=== PATIENT | male | born 1955 | race Caucasian/White ===

== ENCOUNTER 2018-04-26 15:00 | Outpatient (RCR) | payer BC, SELFPAY ==
--- NOTE | 2018-04-22 11:17 | HMH.PTOPEV ---
PT Outpatient Evaluation Rehab PT Outpatient Evaluation Start: 04/20/18 15:23 Freq: Status: Active Protocol: Document 04/20/18 15:00 WILLOW (Rec: 04/22/18 11:17 WILLOW [id number]) Electronically Signed By Huy Taveras, PT 04/20/18 15:00 Outpatient Therapy Subjective History Subjective History Pt reports insidious onset LBP beginning ~10-15 days ago. Pt reports s/s could have been caused by a fall, but is unsure is it's related. Pt presents today w/ R sided LBP and R LE s/s from R glut to R lateral calf. Chief Complaint Pain Symptom Type Ache Throb Sharp Dull Tingling Symptoms Relieved By Rest/Positioning OTC Meds Prescription Meds Symptoms Aggravated By Bending/Stooping Physical Activity Twisting Walking Prior Functional Limitations None Current Functional Limitations Lifting Recreation Activity Walking Bending/Stooping Symptom Description Constant but Variable Level of pain today (0-10) 3 Pain scale - at its best (0-10) 2 Pain scale - at its worst (0-10) 9 Lumbopelvic Eval Posture Thoracic Spine Posture Standing Position Neutral Lumbar Spine Posture Standing Position Neutral Assistive device Assistive Devices None / NA Palapation tenderness right paraspinal tenderness Yes: 3/4 buttock tenderness Yes: 3/4 Accessory Movement L-spine Vertebrae Accessory Movements Right P/A [place] that Elicit Symptoms L4 right L5 right Range of Motion Lumbar Spine Active Flexion Range of 0-60 Motion (degrees) Lumbar Spine Active Extension Range of 0-10 Motion (degrees) Left Lumbar Spine Lateral Flexion Active 0-15 Range of Motion (degrees) Right Lumbar Spine Lateral Flexion 0-10 Active Range of Motion (degrees) Lumbar Spine ROM Limitations Pain Manual Muscle Test Bilateral Knee Extension Strength Grade 5 Normal Knee Flexion Strength Grade 5 Normal Hip Flexion Strength Grade 4 Good Extensor Hallucis Longus Strength Grade 5 Normal Ankle Dorsiflexion Strength Grade 5 Normal Gastronemius/Soleus Strength Grade 5 Normal DTR R
== END 2018-04-26 15:01 | disposition home or self-care (01) ==
LOC: PT 15:00
PROVIDERS: Family Provider Internal Medicine; PCP Internal Medicine; Visit Provider Internal Medicine
DX: M54.31 Sciatica, right side (principal)
CPT/HCPCS: 97010; 97012; 97014; 97035; 97110; 97163; G0283

== ENCOUNTER 2020-06-15 17:56 | Emergency (ER) | payer BC, SELFPAY ==
[2020-06-15 18:02] VITALS: BP 155/87; PULSE 83; RESP 12; TEMP 36.6; O2SAT 97; BMI 28.7
--- NOTE | 2020-06-15 18:02 | XR_ITS ---
PROCEDURE: XR KNEE RT 3V CLINICAL INDICATION: KNOT ON KNEE COMPARISON: No exams were available for comparison FINDINGS: No fracture or dislocation. No lytic or blastic change. There is normal mineralization. The joint spaces are well-preserved. No significant degenerative/arthritic changes. No erosive changes evident. Other findings:There is soft tissue swelling along the proximal and anterior aspect of the tibia without soft tissue gas or radiopaque foreign body. There is generalized vascular calcification. IMPRESSION: Soft tissue swelling proximal tibia otherwise negative Dictated by: Pérez Carlson MD 06/15/2020 22:26 Pérez Carlson MD in [place] 06/15/2020 22:26
--- NOTE | 2020-06-15 18:40 | HMH.EDUTC ---
[facility] [place] Impression: H[place]oma Disposition: Home, Self-Care Condition on Discharge: Good Instructions: Contusion, DI for Contusion, DI for Hematoma (Bruise), How To Perform RICE (Rest, Ice, Compress, Elevate) Additional Instructions: *weight bearing as tolerated *RICE, Rest the extremity, Ice 15-20 minutes 3-4 times daily, Compress- wear the frankie wrap as discussed as much as possible to help reduce swelling and pain, Elevate the extremity when at rest *Frankie wrap is for support and help control swelling, use it except in the shower. Be sure that is not to tight but not to loose either *Elevate when resting *Ibuprofen every 6-8 hours as needed for pain an inflammation. If need something more can take Tylenol in between doses of Ibuprofen to help Immediately follow up with your family doctor for new or worsening of symptoms, or no noticeable improvement over the next 3-5 days Follow up with Family doctor if no improvement or any worsening of symptoms on Wednesday Straight to ER if any life threatening symptoms, trouble breathing chest pain etc Referrals: Kevin Hancock [Primary Care Provider] - As needed Time of Disposition: 18:55 Medical Decision Making - Cruz Inquiry Pt receiving controlled substance: No Cruz was queried for this patient: No Vital Signs: 06/15/20 18:02 06/15/20 18:56 Temperature 98 F 98 F Temperature Source Oral Oral Pulse Rate 83 Pulse Rate [Radial] 83 Respiratory Rate 12 12 Blood Pressure 155/87 H Blood Pressure [Right Arm] 155/87 H Blood Pressure Mean [Right Arm] 109 Blood Pressure Source Automatic Cuff Blood Pressure Source [Right Arm] Automatic Cuff Blood Pressure Position Sitting Blood Pressure Position [Right Arm] Sitting 02 Sat by Pulse Oximetry 97 Oxygen Delivery Method Room Air Room Air Orders (Tests/Meds): ORDERS Category Date Time Status XR knee RT 3V Stat Exams 06/15/20 18:02 Taken XR tibia fibula RT 2V Stat Exams 06/15/20 18:03 Taken - Radiology Data #1 Image(s): Knee Image Reviewed: Yes I reviewed the patient's radiology image w/the ED provider Preliminary Findings: No Fracture Seen #2 Image(s): Tib/Fib Image Reviewed: Yes I reviewed the patient's radiology image w/the ED provider Preliminary Findings: No Fracture Seen Medical Decision Narrative: Patient able to bend and flex foot without causing pain in calf area Patient thinks he may have bumped it tender to the touch but able to walk on it, +pedal pulses noted with changes in temp or color with bruising noted around area After keeping leg elevated in clinic swelling/hematoma appeared to be less prominent and not as swollen [facility] [place] - General Stated complaint: Knot on R leg Time Seen by Provider: 06/15/20 18:41 Mode of Arrival: Ambulatory Source of Information: Patient Limitations: No Limitations Description of Symptoms (Recalled from Triage Doc. by RN): knot on right knee/colin area. states he may have hit it yesterday. HEENT Symptoms (Recalled from RN notes): No Resp Symptoms (Recalled from RN notes): No Skin Symptoms (Recalled from RN notes): Yes MS Symptoms (Recalled from RN notes): Yes Functional Status (Recalled from RN notes): wnl - History of Present Illness Provider Complaint: Patient states that he noticed he had a large knot on his right lower leg just below knee on his colin area States that he hit it yesterday and had a small bruise and knot but after he got out of the shower earlier it was larger States that it is a little sore and looks bruised but wanted to come in and get it checked out not sure if he may have hit it again - Related Data Allergies Allergy/AdvReac Type Severity Reaction Status Date / Time No Known Allergies Allergy Unverified 10/12/17 14:48 - Worker's Comp Is this a Worker's Comp case?: No [facility] History - Hepatitis A Screen Drug use history?: No High risk sexual behaviors?: No History of sexually transmitted infection?:
[2020-06-15 18:56] VITALS: BP 155/87; PULSE 83; RESP 12; TEMP 36.6; O2SAT 97
== END 2020-06-15 18:58 | disposition home or self-care (01) ==
PROVIDERS: Emergency Provider Nurse Practitioner; PCP Internal Medicine
DX: S80.11XA Contusion of right lower leg, initial encounter (principal); W22.8XXA Striking against or struck by other objects, initial encounter; I10 Essential (primary) hypertension; E78.5 Hyperlipidemia, unspecified
CPT/HCPCS: 73562; 73590; 99201

== ENCOUNTER → 2021-09-29 11:32 | Outpatient (CLI) | payer MEDICARE, SELFPAY | PROVIDERS: PCP Internal Medicine; Visit Provider Nurse Practitioner | DX: Z20.822 Contact with and (suspected) exposure to COVID-19 (principal) | CPT/HCPCS: C9803; U0003; U0005 ==

== ENCOUNTER → 2022-06-23 08:06 | Outpatient (CLI) | payer MEDICARE, SELFPAY ==
[2022-06-23 09:03] LABS: Basophils % 0.3 % (0.1-2.0); Eosinophils # 0.1 K/mm3 (0.0-0.4); Eosinophils % 3.1 % (0.1-12.0); Hematocrit 41.4 % (42.0-52.0); Hemoglobin 13.1 g/dL (14.1-18.0); Lymphocytes # 0.8 K/mm3 (0.7-4.5); Lymphocytes % 20.3 % (10-50); Mean Corpuscular HGB Conc 31.7 g/dL (31.8-35.4); Mean Corpuscular Hemoglobin 30.8 pg (27.0-31.2); Mean Corpuscular Volume 96.9 fl (80-94); Mean Platelet Volume 8.6 fl (7.4-10.4); Monocytes # 0.2 K/mm3 (0.1-1.0); Monocytes % 5.5 % (1.7-9.3); Neutrophils # 2.8 K/mm3 (1.8-7.8); Neutrophils % 70.8 % (37.0-80.0); Platelet Count 133 K/mm3 (142-424); Red Blood Count 4.27 M/mm3 (4.60-6.20); Red Cell Distribution Width 12.9 % (11.5-17.5)
[2022-06-23 09:26] LABS: Hemoglobin A1C 5.5 % (4.0-6.0)
[2022-06-23 09:54] LABS: Prostate Specific Ag Screen 1.4 ng/ml (0.0-4.0)
[2022-06-23 10:08] LABS: Chloride 103 mmol/L (98-107); Sodium 137 mmol/L (136-145)
[2022-06-23 10:10] LABS: Alanine Aminotransferase 40 U/L (12-78); Aspartate Amino Transferase 40 U/L (17-59); Blood Urea Nitrogen 13 mg/dl (9-20); Estimated Glomerular Filt Rate 84 ml/min (>60); GFR (African American) 102 ML/MIN (>60)
[2022-06-23 10:11] LABS: Albumin Level 4.3 g/dl (3.5-5.0); Albumin/Globulin Ratio 2.2 (1.1-1.8); Alkaline Phosphatase 83 U/L (38-126); Bilirubin,Total 0.4 mg/dl (0.2-1.3); Calcium 9.3 mg/dl (8.4-10.2); Carbon Dioxide 27 mmol/L (22.0-30.0); Cholesterol 155 mg/dl (140-200); Glucose 125 mg/dl (74-100); HDL Cholesterol 51 mg/dl (40-60); Total Protein,Serum 6.3 g/dl (6.3-8.2); Triglycerides 134 mg/dl (30-150); VLDL Cholesterol 27 mg/dL (0-40)
[2022-06-25 01:57] LABS: Direct LDL Cholesterol 83 mg/dL (100-129)
== END ==
PROVIDERS: PCP Internal Medicine; Visit Provider Internal Medicine
DX: R73.01 Impaired fasting glucose (principal); I10 Essential (primary) hypertension; E78.5 Hyperlipidemia, unspecified; K76.0 Fatty (change of) liver, not elsewhere classified; Z12.5 Encounter for screening for malignant neoplasm of prostate
CPT/HCPCS: 36415; 80053; 80061; 83036; 85025; G0103

== ENCOUNTER → 2022-07-01 11:28 | Outpatient (CLI) | payer MEDICARE, SELFPAY ==
--- NOTE | 2022-07-01 11:34 | XR_ITS ---
FINAL REPORT CLINICAL HISTORY: SHOULDER INJURY FINDINGS: RIGHT SHOULDER: 3 views of the right shoulder were obtained. There is a fracture of the greater tuberosity. There is mild inferior displacement of the fracture fragment. There is mild AC joint degenerative change. There is no soft tissue abnormality. IMPRESSION: Fracture of the greater tuberosity. Reviewed, Interpreted and Dictated by Aditya Diane III, MD Transcribed by Nash Singleton Authenticated and [facility]
== END ==
PROVIDERS: PCP Internal Medicine; Visit Provider Internal Medicine
DX: M25.511 Pain in right shoulder (principal); S49.91XA Unspecified injury of right shoulder and upper arm, initial encounter
CPT/HCPCS: 73030

== ENCOUNTER → 2022-07-16 12:55 | Outpatient (CLI) | payer MEDICARE, SELFPAY ==
--- NOTE | 2022-07-16 13:05 | XR_ITS ---
FINAL REPORT CLINICAL HISTORY: right humerus fx, f/u COMPARISON: July 01, 2022. FINDINGS: 3 views of the right shoulder were obtained. Again seen is a vertical fracture through the greater tuberosity. There is mild callus formation at the fracture site. The joint spaces are intact. There are no soft tissue abnormalities. IMPRESSION: Fracture through the greater tuberosity with minimal interval callus formation. Reviewed, Interpreted and Dictated by Robert Stallworth MD Transcribed by Nash Singleton Authenticated and [facility]
== END ==
PROVIDERS: PCP Internal Medicine; Visit Provider Orthopaedic Surgery
DX: S42.251A Displaced fracture of greater tuberosity of right humerus, initial encounter for closed fracture (principal)
CPT/HCPCS: 73030

== ENCOUNTER → 2022-08-13 10:41 | Outpatient (CLI) | payer MEDICARE, SELFPAY ==
--- NOTE | 2022-08-13 10:48 | XR_ITS ---
FINAL REPORT CLINICAL HISTORY: rt shoulder fx COMPARISON: 07/16/2022 FINDINGS: Right shoulder Three views were obtained. There is a nondisplaced fracture of the greater tuberosity. There is evidence of interval healing. The alignment is stable. There is mild acromioclavicular and glenohumeral joint degenerative change. IMPRESSION: Healing fracture as above. Reviewed, Interpreted and Dictated by Aditya Diane III, MD Transcribed by Rebecca Altamirano Authenticated and [facility]
== END ==
PROVIDERS: PCP Internal Medicine; Visit Provider Orthopaedic Surgery
DX: S42.251A Displaced fracture of greater tuberosity of right humerus, initial encounter for closed fracture (principal)
CPT/HCPCS: 73030

== ENCOUNTER → 2022-12-11 08:57 | Outpatient (CLI) | payer MEDICARE, SELFPAY ==
[2022-12-11 09:05] LABS: MANUAL DIFFERENTIAL MANUAL DIFFERENTIAL (MANUAL DIFF)
[2022-12-11 09:37] LABS: Basophils # 0.1 K/mm3 (0-0.2); Eosinophils # 0.1 K/mm3 (0.0-0.4); Hemoglobin 14.4 g/dL (14.1-18.0); Lymphocytes % 21.7 % (10-50); Mean Corpuscular HGB Conc 34.3 g/dL (31.8-35.4); Mean Corpuscular Hemoglobin 31.4 pg (27.0-31.2); Mean Corpuscular Volume 91.5 fl (80-94); Mean Platelet Volume 9.2 fl (7.4-10.4); Monocytes # 0.3 K/mm3 (0.1-1.0); Monocytes % 5.9 % (1.7-9.3); Neutrophils # 3.3 K/mm3 (1.8-7.8); Neutrophils % 68.5 % (37.0-80.0); Platelet Count 146 K/mm3 (142-424); Red Blood Count 4.59 M/mm3 (4.60-6.20); Red Cell Distribution Width 13.5 % (11.5-17.5); White Blood Count 4.8 K/mm3 (4.8-10.8)
[2022-12-11 09:45] LABS: Hemoglobin A1C 5.8 % (4.0-6.0)
[2022-12-11 10:09] LABS: Alanine Aminotransferase 80 U/L (12-78); Albumin Level 4.9 g/dl (3.5-5.0); Alkaline Phosphatase 72 U/L (38-126); Anion Gap 10.5 mEq/L (5-15); Aspartate Amino Transferase 57 U/L (17-59); Bilirubin,Total 0.7 mg/dl (0.2-1.3); Blood Urea Nitrogen 20 mg/dl (9-20); Calcium 9.5 mg/dl (8.4-10.2); Carbon Dioxide 28 mmol/L (22.0-30.0); Chloride 105 mmol/L (98-107); Chol/HDL Ratio 3.8 (1-3.5); Cholesterol 185 mg/dl (140-200); Estimated Glomerular Filt Rate 67 ml/min (>60); GFR (African American) 81 ML/MIN (>60); Globulin 2.4 g/dL (1.3-3.2); Glucose 130 mg/dl (74-100); HDL Cholesterol 49 mg/dl (40-60); Potassium 4.5 mmoL/L (3.5-5.1); Sodium 139 mmol/L (136-145); Total Protein,Serum 7.3 g/dl (6.3-8.2); Triglycerides 216 mg/dl (30-150); VLDL Cholesterol 43 mg/dL (0-40)
[2022-12-11 10:14] LABS: Eosinophils % 3 % (0-3); Lymphocytes % 26 % (10-50); Monocytes % 3 % (2-9); Neutrophils % 68 % (42-76); Platelet Estimate Slight Decrease; RBC Morphology K; Total Cells Counted 100
[2022-12-11 10:20] LABS: Direct LDL Cholesterol 105.03 mg/dL (100-129)
[2022-12-11 11:16] LABS: Vitamin B12 457 pg/mL (239-931)
[2022-12-11 11:36] LABS: Folate 7.11 ng/mL
[2022-12-18 01:30] LABS: Testosterone, Total, LC/MS 329.7 ng/dL (264.0-916.0); Testosterone,Free 3.7 pg/mL (6.6-18.1)
[2022-12-19 01:44] LABS: Antinuclear Antibodies (ANA) Negative
== END ==
PROVIDERS: PCP Family Medicine; Visit Provider Family Medicine
DX: E78.5 Hyperlipidemia, unspecified (principal); F32.A Depression, unspecified; F41.9 Anxiety disorder, unspecified; I10 Essential (primary) hypertension; J45.909 Unspecified asthma, uncomplicated; K21.9 Gastro-esophageal reflux disease without esophagitis; N52.9 Male erectile dysfunction, unspecified; R25.1 Tremor, unspecified; R35.0 Frequency of micturition; E11.9 Type 2 diabetes mellitus without complications
CPT/HCPCS: 36415; 80053; 80061; 82607; 82746; 83036; 84402; 84403; 84443; 85007; 85014; 85018; 85048; 85049; 86038; 86225; 86235

== ENCOUNTER → 2023-03-02 17:04 | Outpatient (CLI) | payer MEDICARE, SELFPAY ==
[2023-03-02 17:02] LABS: Chloride 97 mmol/L (98-107)
[2023-03-02 17:03] LABS: Potassium 3.5 mmoL/L (3.5-5.1); Sodium 138 mmol/L (136-145)
[2023-03-02 17:04] LABS: Basophils % 0.3 % (0.1-2.0); Eosinophils # 0.2 K/mm3 (0.0-0.4); Eosinophils % 2.3 % (0.1-12.0); Hematocrit 41.9 % (42.0-52.0); Hemoglobin 14.2 g/dL (14.1-18.0); Lymphocytes # 1.1 K/mm3 (0.7-4.5); Lymphocytes % 14.5 % (10-50); Mean Corpuscular HGB Conc 33.8 g/dL (31.8-35.4); Mean Corpuscular Hemoglobin 31.2 pg (27.0-31.2); Mean Corpuscular Volume 92.2 fl (80-94); Monocytes # 0.4 K/mm3 (0.1-1.0); Monocytes % 5.4 % (1.7-9.3); Neutrophils # 5.7 K/mm3 (1.8-7.8); Neutrophils % 77.5 % (37.0-80.0); Platelet Count 164 K/mm3 (142-424); Red Blood Count 4.54 M/mm3 (4.60-6.20); Red Cell Distribution Width 12.8 % (11.5-17.5); White Blood Count 7.4 K/mm3 (4.8-10.8)
[2023-03-02 17:05] LABS: Alanine Aminotransferase 40 U/L (12-78); Alkaline Phosphatase 86 U/L (38-126); Aspartate Amino Transferase 36 U/L (17-59); Bilirubin,Total 0.6 mg/dl (0.2-1.3); Blood Urea Nitrogen 16 mg/dl (9-20); Estimated Glomerular Filt Rate 75 ml/min (>60); GFR (African American) 90 ML/MIN (>60)
[2023-03-02 17:06] LABS: Albumin Level 4.6 g/dl (3.5-5.0); Albumin/Globulin Ratio 2.1 (1.1-1.8); Anion Gap 17.5 mEq/L (5-15); Calcium 9.5 mg/dl (8.4-10.2); Carbon Dioxide 27 mmol/L (22.0-30.0); Globulin 2.2 g/dL (1.3-3.2); Glucose 103 mg/dl (74-100); Total Protein,Serum 6.8 g/dl (6.3-8.2)
[2023-03-02 17:52] LABS: Erythrocyte Sedimentation Rate 10 mm/hr (0-20)
== END ==
PROVIDERS: PCP Nurse Practitioner Family; Visit Provider Nurse Practitioner Family
DX: R10.32 Left lower quadrant pain (principal)
CPT/HCPCS: 80053; 85025; 85651; 86140

== ENCOUNTER → 2023-03-03 08:45 | Outpatient (CLI) | payer MEDICARE, SELFPAY ==
--- NOTE | 2023-03-03 08:46 | CT_ITS ---
FINAL REPORT TECHNIQUE: IV contrast enhanced exam. This study was performed with techniques to keep radiation doses as low as reasonably achievable, (ALARA). Individualized dose reduction techniques using automated exposure control or adjustment of mA and/or kV according to the patient's size were employed. CLINICAL HISTORY: llq pain, diverticultis, ?perforation , elevated CRP COMPARISON: None FINDINGS: Abdomen: No acute density is seen within the lung bases. The gallbladder is unremarkable. Solid abdominal organs are unremarkable. No bowel obstruction is present. There is no free air. No fluid collection is seen. Mild mesenteric adenitis with hazy density of central mesentery. 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 Pelvis: The appendix is normal. Wall thickening and inflammatory changes in the mid and distal descending colon. Given the extent of diverticular disease findings are likely related to diverticulitis. No abscess, obstruction, or perforation identified. Mild prostate enlargement. Soft tissue density in the posterior bladder base measuring 2.3 cm is probably due to prostate lobulation although bladder mass is not excluded. IMPRESSION: Inflammatory changes of the descending colon most likely diverticulitis without abscess or perforation. Incidental masslike density within the bladder base probably related to enlarged lobulated prostate. However, cystoscopy recommended to exclude bladder mass. Reviewed, Interpreted and Dictated by Jhon Webster MD Transcribed by Leticia Salguero Authenticated and [facility]
== END ==
PROVIDERS: PCP Family Medicine; Visit Provider Nurse Practitioner Family
DX: R10.32 Left lower quadrant pain (principal)
CPT/HCPCS: 74177; Q9967

== ENCOUNTER 2023-05-05 07:45 | Day surgery (SDC) | payer MEDICARE, SELFPAY ==
[2023-04-26 09:02] VITALS: BMI 29.0
[2023-05-05 08:06] VITALS: BP 161/87; PULSE 64; RESP 17; TEMP 36.2; O2SAT 96
--- NOTE | 2023-05-05 08:18 | P.PN_ITS ---
[facility] Disclaimer: The information contained in this section may have been updated after the patient was seen, as this information can be updated by other users. Medical History Asthma Diverticulitis Hyperlipidemia Hypertension Surgical History H/O colonoscopy with polypectomy History of back surgery Hx of tonsillectomy Family History Father Cancer liver Mother Cancer lung Sister Diabetes Hypertension Social History Smoking Status: Former smoker years smoked: 25 how long ago did patient quit smokin years alcohol intake: current substance use type: denies use current occupational status: retired Travel in the last 8 weeks: None household members: spouse housing: house marital status: number of children: 2 education level: high school service: No caffeine: No do you feel safe at home: Yes victim of physical abuse: No victim of emotional abuse: No victim of sexual abuse: No would you like helpful sources: No [facility] Anesthesia Checklist Patient Identification Patient Identification: Arm Band and Family Structural Data Admitted From: Home Planned Operative Procedure/s: Colonoscopy Consent for Planned Operative Procedure(s) Verified: Yes Verified Documents: Surgical Consent and History and Physical NPO Status Verified Time NPO: 00:00 Additional verifications Patient : No Anesthesia Reactions: No Hx Blood Transfusions: No Blood Transfusion Reaction: No Cephalosporin Allergy: No Airway Assessment C-Spine Mobility Assessed: Yes TMJ Mobility Assessed: Yes Dentition: Good Dentition Neurological Assessment Level of Consciousness: Awake, Alert, Appropriate and Follows Commands Hx Seizures: No Numbness or tingling in extremities: No Anesthesia Plan Anesthesia Risk discussed: Yes ASA Class: II Anesthesia Type: MAC Preoperative Comments Pre-Operative Comments: HTN. Diverticulitis.
--- NOTE | 2023-05-05 09:39 | HMH.SCOPE ---
Procedure: Date: 05/05/23 Patient Date of :: 1955 Procedure Performed:: Colonoscopy Indications:: The patient is a 67 year old who presents for surveillance colonoscopy. He had diverticulitis of the descending colon in February Performing Provider:: Stan Walters MD Referring Provider:: Che Randle MD Sedation:: See RN records Procedure:: After placing the patient in the left lateral decubitus position, the colonoscopy was gently inserted into the rectum and under direct visualization advanced to the cecum which was identified by transillumination in the right lower quadrant, identification of the ileocecal valve, appendiceal orifice, and cecal strap. Color, texture, mucosa, and anatomy of the colon were carefully examined with the scope. Findings:: Anal canal: normal Rectum: hemorrhoids Sigmoid colon: Sessile polyp less than 5 mm in size. Removed with cold snare polypectomy. fair bowel preparation. diverticulosis Descending colon: Two sessile polyps measuring 6 mm and 4 mm in size. Removerd with cold snare polypectomy. diverticulosis Splenic flexure: normal Transverse colon: normal without polyps or inflammatory changes Hepatic flexure: Sessile polyp less than 5 mm in size. Removed with cold snare polypectomy. Ascending colon: diverticulosis Cecum: diverticulosisl Terminal ileum: not visualized Impression: Polyp of hepatic flexure Polyps of descending colon Polyp of sigmoid colon Diverticulosis Recommendations:: Await pathology results Higher fiber diet Repeat colonoscpy in 3 years Complications:: None Estimated blood obtained (mL): 0 Colonoscopy Component Colonoscopy Component Was a colonoscopy performed during today's procedure?: Yes Recommended follow up colonoscopy of at least 10 years?: Yes
[2023-05-05 09:45] VITALS: BP 102/58; PULSE 56; RESP 16; TEMP 36.1; O2SAT 96
[2023-05-05 09:55] VITALS: BP 110/65; PULSE 53; RESP 16; TEMP 36.1; O2SAT 96
[2023-05-05 10:05] VITALS: BP 116/71; PULSE 51; RESP 18; TEMP 36.1; O2SAT 96
[2023-05-05 10:15] VITALS: BP 124/55; PULSE 48; RESP 18; TEMP 36.1; O2SAT 96
[2023-05-05 10:30] VITALS: BP 119/74; PULSE 51; RESP 18; TEMP 36.1; O2SAT 96
== END 2023-05-05 10:30 | disposition home or self-care (01) ==
PROVIDERS: PCP Nurse Practitioner Family; Visit Provider Internal Medicine
PROC: 0DJD8ZZ Inspection of Lower Intestinal Tract, Via Natural or Artificial Opening Endoscopic (ICD-10-PCS; CPT 45378; principal; 2023-05-05 09:00)
DX: D12.3 Benign neoplasm of transverse colon (principal); D12.4 Benign neoplasm of descending colon; D12.5 Benign neoplasm of sigmoid colon; K57.92 Diverticulitis of intestine, part unspecified, without perforation or abscess without bleeding; K57.30 Diverticulosis of large intestine without perforation or abscess without bleeding; K64.8 Other hemorrhoids
CPT/HCPCS: 45385; 88305

== ENCOUNTER → 2023-06-30 08:26 | Outpatient (CLI) | payer MEDICARE, SELFPAY ==
[2023-06-30 09:28] LABS: Basophils % 0.3 % (0.1-2.0); Eosinophils # 0.1 K/mm3 (0.0-0.4); Eosinophils % 2.2 % (0.1-12.0); Hematocrit 42.3 % (42.0-52.0); Hemoglobin 14.4 g/dL (14.1-18.0); Lymphocytes # 0.9 K/mm3 (0.7-4.5); Lymphocytes % 17.8 % (10-50); Mean Corpuscular Hemoglobin 31.4 pg (27.0-31.2); Mean Corpuscular Volume 92.5 fl (80-94); Mean Platelet Volume 9.3 fl (7.4-10.4); Monocytes # 0.4 K/mm3 (0.1-1.0); Monocytes % 7.1 % (1.7-9.3); Neutrophils # 3.7 K/mm3 (1.8-7.8); Neutrophils % 72.7 % (37.0-80.0); Platelet Count 138 K/mm3 (142-424); Red Blood Count 4.57 M/mm3 (4.60-6.20); Red Cell Distribution Width 13.6 % (11.5-17.5)
[2023-06-30 09:55] LABS: Alanine Aminotransferase 52 U/L (12-78); Albumin Level 4.6 g/dl (3.5-5.0); Alkaline Phosphatase 72 U/L (38-126); Anion Gap 15.7 mEq/L (5-15); Aspartate Amino Transferase 48 U/L (17-59); Bilirubin,Total 0.4 mg/dl (0.2-1.3); Blood Urea Nitrogen 17 mg/dl (9-20); Calcium 9.4 mg/dl (8.4-10.2); Carbon Dioxide 26 mmol/L (22.0-30.0); Chloride 101 mmol/L (98-107); Chol/HDL Ratio 2.6 (1-3.5); Cholesterol 162 mg/dl (140-200); Estimated Glomerular Filt Rate 67 ml/min (>60); GFR (African American) 81 ML/MIN (>60); Globulin 2.3 g/dL (1.3-3.2); Glucose 123 mg/dl (74-100); HDL Cholesterol 63 mg/dl (40-60); Potassium 3.7 mmoL/L (3.5-5.1); Sodium 139 mmol/L (136-145); Total Protein,Serum 6.9 g/dl (6.3-8.2); Triglycerides 107 mg/dl (30-150); VLDL Cholesterol 21 mg/dL (0-40)
[2023-06-30 10:07] LABS: Direct LDL Cholesterol 75.38 mg/dL (100-129)
[2023-06-30 10:12] LABS: Free T4 (Free Thyroxine) 0.86 ng/dl (0.78-2.19)
[2023-06-30 10:26] LABS: Thyroid Stimulating Hormone 0.86 uIU/mL (0.465-4.68)
[2023-06-30 11:12] LABS: Hemoglobin A1C 5.4 % (4.0-6.0)
== END ==
PROVIDERS: PCP Nurse Practitioner Family; Visit Provider Nurse Practitioner Family
DX: I10 Essential (primary) hypertension; E11.9 Type 2 diabetes mellitus without complications; E78.5 Hyperlipidemia, unspecified; F32.A Depression, unspecified; F41.9 Anxiety disorder, unspecified; R25.1 Tremor, unspecified
CPT/HCPCS: 36415; 80053; 80061; 83036; 84439; 84443; 85025

== ENCOUNTER → 2023-08-12 16:02 | Outpatient (CLI) | payer MEDICARE, SELFPAY ==
[2023-08-12 13:31] LABS: Alanine Aminotransferase 76 U/L (12-78); Albumin Level 5.2 g/dl (3.5-5.0); Alkaline Phosphatase 72 U/L (38-126); Aspartate Amino Transferase 66 U/L (17-59); Bilirubin,Total 0.7 mg/dl (0.2-1.3); Blood Urea Nitrogen 16 mg/dl (9-20); Calcium 10.2 mg/dl (8.4-10.2); Carbon Dioxide 26 mmol/L (22.0-30.0); Chloride 96 mmol/L (98-107); Estimated Glomerular Filt Rate 67 ml/min (>60); GFR (African American) 81 ML/MIN (>60); Globulin 2.6 g/dL (1.3-3.2); Glucose 119 mg/dl (74-100); Magnesium 1.5 mg/dl (1.6-2.3); Sodium 135 mmol/L (136-145); Total Protein,Serum 7.8 g/dl (6.3-8.2)
[2023-08-12 13:45] LABS: 25-OH Vitamin D, Total 34.6 ng/mL (30-100)
== END ==
PROVIDERS: PCP Nurse Practitioner Family; Visit Provider Nurse Practitioner Family
DX: E55.9 Vitamin D deficiency, unspecified (principal); R25.2 Cramp and spasm; Z68.27 Body mass index [BMI] 27.0-27.9, adult
CPT/HCPCS: 80053; 82306; 83735

== ENCOUNTER → 2023-08-23 17:01 | Outpatient (CLI) | payer MEDICARE, SELFPAY ==
[2023-08-23 18:01] LABS: Basophils % 0.2 % (0.1-2.0); Eosinophils # 0.1 K/mm3 (0.0-0.4); Hematocrit 42.2 % (42.0-52.0); Hemoglobin 15.2 g/dL (14.1-18.0); Lymphocytes # 1.1 K/mm3 (0.7-4.5); Lymphocytes % 17.8 % (10-50); Mean Corpuscular Hemoglobin 33.3 pg (27.0-31.2); Mean Corpuscular Volume 92.7 fl (80-94); Mean Platelet Volume 9.5 fl (7.4-10.4); Monocytes # 0.4 K/mm3 (0.1-1.0); Monocytes % 6.5 % (1.7-9.3); Neutrophils # 4.7 K/mm3 (1.8-7.8); Neutrophils % 74.4 % (37.0-80.0); Platelet Count 157 K/mm3 (142-424); Red Blood Count 4.56 M/mm3 (4.60-6.20); Red Cell Distribution Width 12.8 % (11.5-17.5); White Blood Count 6.4 K/mm3 (4.8-10.8)
[2023-08-23 18:12] LABS: Alanine Aminotransferase 68 U/L (12-78); Albumin/Globulin Ratio 1.9 (1.1-1.8); Alkaline Phosphatase 79 U/L (38-126); Anion Gap 14.9 mEq/L (5-15); Aspartate Amino Transferase 54 U/L (17-59); Bilirubin,Total 0.5 mg/dl (0.2-1.3); Blood Urea Nitrogen 23 mg/dl (9-20); Calcium 9.9 mg/dl (8.4-10.2); Carbon Dioxide 25 mmol/L (22.0-30.0); Chloride 98 mmol/L (98-107); Estimated Glomerular Filt Rate 55 ml/min (>60); GFR (African American) 67 ML/MIN (>60); Globulin 2.6 g/dL (1.3-3.2); Glucose 103 mg/dl (74-100); Magnesium 1.6 mg/dl (1.6-2.3); Potassium 4.9 mmoL/L (3.5-5.1); Sodium 133 mmol/L (136-145); Total Protein,Serum 7.6 g/dl (6.3-8.2)
== END ==
PROVIDERS: PCP Nurse Practitioner Family; Visit Provider Nurse Practitioner Family
DX: I95.9 Hypotension, unspecified (principal); R42 Dizziness and giddiness
CPT/HCPCS: 80053; 83735; 85025

== ENCOUNTER → 2023-08-26 16:24 | Outpatient (CLI) | payer MEDICARE, SELFPAY ==
[2023-08-26 12:40] LABS: Anion Gap 17.1 mEq/L (5-15); Blood Urea Nitrogen 17 mg/dl (9-20); Calcium 10.3 mg/dl (8.4-10.2); Carbon Dioxide 26 mmol/L (22.0-30.0); Chloride 95 mmol/L (98-107); Estimated Glomerular Filt Rate 67 ml/min (>60); GFR (African American) 81 ML/MIN (>60); Glucose 108 mg/dl (74-100); Potassium 5.1 mmoL/L (3.5-5.1); Sodium 133 mmol/L (136-145)
== END ==
PROVIDERS: PCP Nurse Practitioner Family; Visit Provider Nurse Practitioner Family
DX: N17.9 Acute kidney failure, unspecified (principal)
CPT/HCPCS: 80048

== ENCOUNTER 2024-06-22 14:25 | Outpatient (CLI) | payer MEDICARE, SELFPAY ==
[2024-06-22 14:51] LABS: Basophils % 0.6 % (0.1-2.0); Eosinophils # 0.1 K/mm3 (0.0-0.4); Eosinophils % 1.6 % (0.1-12.0); Lymphocytes # 0.9 K/mm3 (0.7-4.5); Lymphocytes % 20.7 % (10-50); Mean Corpuscular HGB Conc 33.4 g/dL (31.8-35.4); Mean Corpuscular Hemoglobin 31.6 pg (27.0-31.2); Mean Corpuscular Volume 94.6 fl (80-94); Mean Platelet Volume 9.2 fl (7.4-10.4); Monocytes # 0.3 K/mm3 (0.1-1.0); Monocytes % 5.9 % (1.7-9.3); Neutrophils % 71.3 % (37.0-80.0); Platelet Count 103 K/mm3 (142-424); Red Blood Count 4.76 M/mm3 (4.60-6.20); Red Cell Distribution Width 13.3 % (11.5-17.5); White Blood Count 4.3 K/mm3 (4.8-10.8)
[2024-06-22 15:10] LABS: Hemoglobin A1C 5.8 % (4.0-6.0)
[2024-06-22 15:49] LABS: Microscopic, Urine URINE MICROSCOPIC (MICROSCOPIC)
[2024-06-22 15:56] LABS: Alanine Aminotransferase 73 U/L (12-78); Albumin Level 4.5 g/dl (3.5-5.0); Albumin/Globulin Ratio 1.6 (1.1-1.8); Alkaline Phosphatase 79 U/L (38-126); Anion Gap 11.2 mEq/L (5-15); Aspartate Amino Transferase 64 U/L (17-59); Bilirubin,Total 0.8 mg/dl (0.2-1.3); Blood Urea Nitrogen 11 mg/dl (9-20); Calcium 9.5 mg/dl (8.4-10.2); Carbon Dioxide 30 mmol/L (22.0-30.0); Chloride 99 mmol/L (98-107); Chol/HDL Ratio 3.3 (1-3.5); Cholesterol 170 mg/dl (140-200); Estimated Glomerular Filt Rate 84 ml/min (>60); GFR (African American) 102 ML/MIN (>60); Globulin 2.8 g/dL (1.3-3.2); Glucose 94 mg/dl (74-100); HDL Cholesterol 51 mg/dl (40-60); Magnesium 1.7 mg/dl (1.6-2.3); Potassium 3.2 mmoL/L (3.5-5.1); Sodium 137 mmol/L (136-145); Total Protein,Serum 7.3 g/dl (6.3-8.2); Triglycerides 165 mg/dl (30-150); VLDL Cholesterol 33 mg/dL (0-40)
[2024-06-22 16:08] LABS: Direct LDL Cholesterol 87.39 mg/dL (100-129)
[2024-06-22 16:13] LABS: 25-OH Vitamin D, Total 32.7 ng/mL (30-100); Free T4 (Free Thyroxine) 0.94 ng/dl (0.78-2.19)
[2024-06-22 16:30] LABS: Prostate Specific Ag Screen 1.7 ng/ml (0.0-4.0); Thyroid Stimulating Hormone 0.91 uIU/mL (0.465-4.68)
[2024-06-22 16:49] LABS: Vitamin B12 582 pg/mL (239-931)
[2024-06-22 17:36] LABS: Ferritin 132 ng/ml (17.9-464); Iron 78 ug/dL (49-181); Total Iron Binding Capacity 312 ug/dL (261-462)
[2024-06-23 10:44] LABS: HIV (1&2) Antibody Rapid NONREACTIVE (NONREACTIVE)
[2024-06-23 12:38] LABS: Appearance,Urine CLEAR (Clear); Bilirubin,Urine Negative (Negative); Blood, Urine Negative (Negative); Color,Urine YELLOW (Yellow); Glucose,Urine (UA) Negative (Negative); Ketones,Urine Negative (Negative); Leukocyte Esterase,Urine Negative (Negative); Nitrate,Urine Negative (Negative); Protein,Urine TRACE (Negative); Specific Gravity, Urine >= 1.030 (1.005-1.030); Urobilinogen,Urine 0.2 EU/dl (0.2)
[2024-06-23 13:01] LABS: Bacteria,Urine Trace /lpf; Squamous Epithelial Cell,Urine Occasional #/hpf (0-5); WBC,Urine Occasional #/hpf (0-3)
[2024-06-24 08:18] LABS: HBsAg Screen Negative (Negative); HCV Ab Non Reactive (Non Reactive); Hep A Ab, IGM Negative (Negative); Hep B Core Ab, IgM Negative (Negative)
[2024-06-24 16:25] LABS: Peripheral Smear Review Scanned Result
[2024-06-28 20:15] LABS: Vitamin B1 72.1 nmol/L (66.5-200.0)
[2024-06-29 14:13] LABS: Vitamin B6 7.1 ug/L (3.4-65.2)
== END 2024-06-22 23:59 | disposition home or self-care (01) ==
LOC: LAB 16:09
PROVIDERS: PCP Nurse Practitioner Family; Visit Provider Nurse Practitioner Family
DX: Z11.4 Encounter for screening for human immunodeficiency virus [HIV] (principal); R63.4 Abnormal weight loss; I10 Essential (primary) hypertension; F10.20 Alcohol dependence, uncomplicated; Z11.59 Encounter for screening for other viral diseases; E55.9 Vitamin D deficiency, unspecified; E61.1 Iron deficiency; Z12.5 Encounter for screening for malignant neoplasm of prostate; Z13.1 Encounter for screening for diabetes mellitus; N52.9 Male erectile dysfunction, unspecified; R73.03 Prediabetes; R53.83 Other fatigue; D69.6 Thrombocytopenia, unspecified
CPT/HCPCS: 36415; 80050; 80053; 80061; 80074; 81001; 82306; 82607; 82728; 83036; 83540; 83550; 83735; 84100; 84156; 84207; 84425; 84439; 84443; 85025; 87086; G0103

== ENCOUNTER 2024-11-13 16:57 | Outpatient (CLI) | payer MEDICARE, SELFPAY ==
[2024-11-13 11:17] LABS: Microscopic, Urine URINE MICROSCOPIC (MICROSCOPIC)
[2024-11-13 11:25] LABS: Basophils % 0.6 % (0.1-2.0); Eosinophils # 0.2 K/mm3 (0.0-0.4); Eosinophils % 3.4 % (0.1-12.0); Hematocrit 46.6 % (42.0-52.0); Hemoglobin 16.1 g/dL (14.1-18.0); Lymphocytes # 1.1 K/mm3 (0.7-4.5); Lymphocytes % 20.7 % (10-50); Mean Corpuscular HGB Conc 34.5 g/dL (31.8-35.4); Mean Corpuscular Volume 86.9 fl (80-94); Mean Platelet Volume 11.1 fl (7.4-10.4); Monocytes # 0.4 K/mm3 (0.1-1.0); Monocytes % 7.9 % (1.7-9.3); Neutrophils # 3.4 K/mm3 (1.8-7.8); Platelet Count 140 K/mm3 (142-424); Red Blood Count 5.36 M/mm3 (4.60-6.20); Red Cell Distribution Width 12.7 % (11.5-17.5); White Blood Count 5.1 K/mm3 (4.8-10.8)
[2024-11-13 11:55] LABS: Albumin Level 4.9 g/dl (3.5-5.0)
[2024-11-13 11:56] LABS: Chloride 98 mmol/L (98-107); Potassium 4.3 mmoL/L (3.5-5.1); Sodium 138 mmol/L (136-145)
[2024-11-13 11:58] LABS: Alanine Aminotransferase 85 U/L (12-78); Albumin/Globulin Ratio 2.1 (1.1-1.8); Alkaline Phosphatase 99 U/L (38-126); Anion Gap 15.3 mEq/L (5-15); Aspartate Amino Transferase 67 U/L (17-59); Bilirubin,Total 0.8 mg/dl (0.2-1.3); Blood Urea Nitrogen 14 mg/dl (9-20); Carbon Dioxide 29 mmol/L (22.0-30.0); Cholesterol 187 mg/dl (140-200); Estimated Glomerular Filt Rate 74 ml/min (>60); GFR (African American) 90 ML/MIN (>60); Globulin 2.3 g/dL (1.3-3.2); Total Protein,Serum 7.2 g/dl (6.3-8.2); Triglycerides 221 mg/dl (30-150); VLDL Cholesterol 44 mg/dL (0-40)
[2024-11-13 11:59] LABS: Glucose 166 mg/dl (74-100); Magnesium 1.6 mg/dl (1.6-2.3)
[2024-11-13 12:04] LABS: 25-OH Vitamin D, Total 34.8 ng/mL (30-100)
[2024-11-13 12:05] LABS: Appearance,Urine CLEAR (Clear); Bilirubin,Urine Negative (Negative); Blood, Urine Negative (Negative); Color,Urine YELLOW (Yellow); Glucose,Urine (UA) Negative (Negative); Ketones,Urine Negative (Negative); Leukocyte Esterase,Urine Negative (Negative); Nitrate,Urine Negative (Negative); Protein,Urine Negative (Negative); Specific Gravity, Urine >= 1.030 (1.005-1.030); Urobilinogen,Urine 0.2 EU/dl (0.2)
[2024-11-13 12:11] LABS: Direct LDL Cholesterol 102.49 mg/dL (100-129)
[2024-11-13 12:57] LABS: Chol/HDL Ratio 4.1 (1-3.5); HDL Cholesterol 46 mg/dl (40-60)
[2024-11-13 15:11] LABS: Hemoglobin A1C 6.7 % (4.0-6.0)
[2024-11-21 01:16] LABS: Free Testosterone (Direct) 3.4 pg/mL (6.6-18.1); Testosterone, Total, LC/MS 412.5 ng/dL (264.0-916.0)
== END 2024-11-13 23:59 | disposition home or self-care (01) ==
LOC: LAB.DROPOF 16:58
PROVIDERS: PCP Nurse Practitioner Family; Visit Provider Nurse Practitioner Family
DX: R53.83 Other fatigue (principal); E78.5 Hyperlipidemia, unspecified; I10 Essential (primary) hypertension; N32.89 Other specified disorders of bladder; R73.03 Prediabetes; N52.9 Male erectile dysfunction, unspecified; E55.9 Vitamin D deficiency, unspecified; F10.20 Alcohol dependence, uncomplicated; K21.9 Gastro-esophageal reflux disease without esophagitis; R35.0 Frequency of micturition; Z87.891 Personal history of nicotine dependence
CPT/HCPCS: 80053; 80061; 81001; 82306; 83036; 83735; 84100; 84156; 85025; 87086

== ENCOUNTER 2024-11-15 08:26 | Outpatient (CLI) | payer MEDICARE, SELFPAY ==
--- NOTE | 2024-11-15 08:30 | XR_ITS ---
FINAL REPORT CLINICAL HISTORY: right shoulder pain FINDINGS: Right shoulder Five views were obtained. There is no fracture or dislocation. There are mild to moderate hypertrophic changes of osteoarthritis of the acromioclavicular joint. There are mild hypertrophic changes of the glenohumeral joint. No soft tissue abnormality is identified. IMPRESSION: Degenerative changes as detailed above. Reviewed, Interpreted and Dictated by Robert Stallworth MD Transcribed by Rebecca Altamirano Authenticated and [facility]
== END 2024-11-15 23:59 | disposition home or self-care (01) ==
LOC: RAD 08:28
PROVIDERS: PCP Nurse Practitioner Family; Visit Provider Nurse Practitioner Family
DX: M25.511 Pain in right shoulder (principal)
CPT/HCPCS: 73030

== ENCOUNTER → 2024-12-18 06:17 | Outpatient (CLI) | payer MEDICARE, SELFPAY | LOC: SL 06:18 | PROVIDERS: PCP Nurse Practitioner Family; Visit Provider Nurse Practitioner Family | DX: G47.33 Obstructive sleep apnea (adult) (pediatric) (principal); R06.83 Snoring; R53.83 Other fatigue; N52.9 Male erectile dysfunction, unspecified; I10 Essential (primary) hypertension | CPT/HCPCS: G0399 ==

== ENCOUNTER 2025-01-22 13:47 | Outpatient (CLI) | payer MEDICARE, SELFPAY ==
[2025-01-22 14:03] LABS: Alanine Aminotransferase 57 U/L (12-78); Albumin Level 4.2 g/dl (3.5-5.0); Albumin/Globulin Ratio 1.8 (1.1-1.8); Alkaline Phosphatase 80 U/L (38-126); Aspartate Amino Transferase 43 U/L (17-59); Bilirubin,Total 0.8 mg/dl (0.2-1.3); Blood Urea Nitrogen 19 mg/dl (9-20); Calcium 9.6 mg/dl (8.4-10.2); Carbon Dioxide 28 mmol/L (22.0-30.0); Chloride 98 mmol/L (98-107); Chol/HDL Ratio 3.7 (1-3.5); Cholesterol 140 mg/dl (140-200); Estimated Glomerular Filt Rate 67 ml/min (>60); GFR (African American) 81 ML/MIN (>60); Globulin 2.3 g/dL (1.3-3.2); Glucose 127 mg/dl (74-100); HDL Cholesterol 38 mg/dl (40-60); Potassium 3.3 mmoL/L (3.5-5.1); Total Protein,Serum 6.5 g/dl (6.3-8.2); Triglycerides 196 mg/dl (30-150); VLDL Cholesterol 39 mg/dL (0-40)
[2025-01-22 14:14] LABS: Direct LDL Cholesterol 60.62 mg/dL (100-129)
[2025-01-22 14:28] LABS: Creatinine,Urine Random 160 mg/dL (Not Estab.)
[2025-01-22 14:33] LABS: Microalbumin/Creatinine Ratio 20.5
[2025-01-22 14:58] LABS: Anion Gap 14.3 mEq/L (5-15); Sodium 137 mmol/L (136-145)
== END 2025-01-22 23:59 | disposition home or self-care (01) ==
LOC: LAB.DROPOF 13:47
PROVIDERS: PCP Nurse Practitioner Family; Visit Provider Nurse Practitioner Family
DX: E78.5 Hyperlipidemia, unspecified (principal); I10 Essential (primary) hypertension; E11.9 Type 2 diabetes mellitus without complications; R41.3 Other amnesia
CPT/HCPCS: 80053; 80061; 82043; 82570; 83036

== ENCOUNTER → 2025-03-22 15:01 | Outpatient (CLI) | payer MEDICARE, SELFPAY | LOC: SL 15:03 | PROVIDERS: PCP Nurse Practitioner Family; Visit Provider Specialist | DX: G47.33 Obstructive sleep apnea (adult) (pediatric) (principal) | CPT/HCPCS: 94762 ==

== ENCOUNTER → 2025-05-08 08:34 | Outpatient (CLI) | payer MEDICARE, SELFPAY ==
--- OUTSIDE RECORDS SUMMARY | 2025-05-08 08:36 | XMS_ITS | Data Portability ---
Author Organization [facility] [place] Address [address] [place] [address] Care Team Providers Care [employer] Tutor Name Role Phone MELISA GARNER Referring Provider [phone] Assessment Encounter Date Assessment Date Assessment LastModified by Organization Details LastModified Time 04/14/2023 04/14/2023 SURGERY DATE: 04/14/2023 PREOPERATIVE DIAGNOSIS: Urinary frequency. POSTOPERATIVE DIAGNOSIS: Urinary frequency secondary to bladder instability. PROCEDURE: Flexible local cystoscopy BRIEF HISTORY: The patient with bothersome obstructive frequency symptoms. He has been on tamsulosin without improvement. He presents today for cystoscopy for further evaluation. OPERATIVE NOTE: After satisfactory position, penis was prepped and draped in normal fashion. Xylocaine jelly was instilled in the urethra. Flexible cystoscope was the introduced. Pendulous urethra was unremarkable, prostatic urethra minimally obstructing. Upon entering the bladder he had some slight intravesical extension, but really did not appear to have obstruction. He had a coarsely trabeculated bladder. There was no evidence of bladder tumors. Scope was withdrawn. We will place him on oxygen chloride extended release, 10 mg per day. He will follow up in a month. [email or web address] Not available 04/14/2023 16:56:37 Plan of Treatment Reminders Order Date Submit Date Provider Last Modified By Organization Details Last Modified Time Details Appointments RECHECK 2025 01:00P M AYDEN KNIGHT MD Not available Not available Not available Lab urinalysi s panel, auto 2024 025 [email or web address] [facility], [address], [place], [address], 11/22/2024 13:22:37 urinalysi s panel, auto [address] [facility], [address], [address], [place], [address], 11/02/2023 14:28:24 urinalysi s panel, auto [address] [facility], [address], [address], [place], [address], 05/18/2023 11:10:46 Referral None recorded. Procedures None recorded. Surgeries None recorded. Imaging None recorded. Medication Orders oxybutyni n chloride ER 10 mg tablet,ex tended release 24 hr 2024 025 [facility], [place], [address], 11/22/2024 13:22:39 oxybutyni n chloride ER 10 mg tablet,ex tended release 24 hr 2022 023 [facility] [address] [employer] [facility], [address]nd Floor, [place], [address], 05/18/2023 11:10:48 Patient TargetsNo targets recorded. Patient InstructionsNo instructions recorded. Reason for Referral None Reported. Results Created Date Observation Date Name Description Value Unit Range Abnormal Flag Note LastModifiedBy Organization Detail LastModifiedTime 05/17/2005/17/2023 urina lysis panel , auto Unknown Analyte Clean Catch Not Available [facility] [address], [place], [address], 05/17/2023 14:18:59 05/17/2005/17/2023 urina lysis panel , auto Unknown Analyte Hiko Not Available Replaced by [facility] [address], [place], [address], 05/17/2023 14:18:59 05/17/20 23 05/17/2023 urina lysis panel , auto Unknown Analyte Clear Not Available [facility] [address], [place], [address], 05/17/2023 14:18:59 05/17/20 23 05/17/2023 urina lysis panel , auto Unknown Analyte 1.020 Not Available [facility] [address], [place], [address], 05/17/2023 14:18:59 05/17/20 23 05/17/2023 urina lysis panel , auto Unknown Analyte 5.0 Not Available [facility] [address], [place], [address], 05/17/2023 14:18:59 05/17/20 23 05/17/2023 urina lysis panel , auto Unknown Analyte Negati ve Not Available [facility] [address], [place], [address], 05/17/2023 14:18:59 05/17/20 23 05/17/2023 urina lysis panel , auto Unknown Analyte Negati ve Not Available [facility] [address], [place], [address], 05/17/2023 14:18:59 05/17/20 23 05/17/2023 urina lysis panel , auto Unknown Analyte 30 mg/dl (+) Not Available [facility] [address], [place], [address], 05/17/2023 14:18:59 05/17/20 23 05/17/2023 urina lysis panel , auto Unknown Analyte Normal Not Available [facility] [address], [place], [address], 05/17/2023 14:18:59 05/17/20 23 05/17/2023 urina lysis panel , auto Unknown Analyte Negati ve Not Available [facility] [address], [place], [address], 05/17/2023 14:18:59 05/17/20 23 05/17/2023 urina lysis panel , auto Unknown Analyte 1 mg/dl Not Available [facility] [address], [place], [address], 05/17/2023 14:18:59 05/17/20 23 05/17/2023 urina lysis panel , auto Unknown Analyte 1 mg/dl (+) Not Available [facility] [address], [place], [address], 05/17/2023 14:18:59 05/17/20 23 05/17/2023 urina lysis panel , auto Unknown Analyte 50 Barry/ul Not Available [facility] [address], [place], [address], 05/17/2023 14:18:59 11/02/19 24 11/02/2023 urina lysis panel , auto Unknown Analyte Clean Catch Not Available [facility] [address], [place], [address], 11/02/2023 13:48:31 11/02/19 24 11/02/2023 urina lysis panel , auto Unknown Analyte Yellow Not Available [facility] [address], [place], [address], 11/02/2023 13:48:31 11/02/19 24 11/02/2023 urina lysis panel , auto Unknown Analyte Clear Not Available Replaced by [facility] [address], [place], [address], 11/02/2023 13:48:31 11/02/19 24 11/02/2023 urina lysis panel , auto Unknown Analyte 1.010 Not Available [facility] [address], [place], [address], 11/02/2023 13:48:31 11/02/19 24 11/02/2023 urina lysis panel , auto Unknown Analyte 1.003- 1.035 Not Available [facility] [address], [place], [address], 11/02/2023 13:48:31 11/02/19 24 11/02/2023 urina lysis panel , auto Unknown Analyte 5.0 Not Available [facility] [address], [place], [address], 11/02/2023 13:48:31 11/02/19 24 11/02/2023 urina lysis panel , auto Unknown Analyte 5.0-8. 0 Not Available [facility] [address], [place], [address], 11/02/2023 13:48:31 11/02/19 24 11/02/2023 urina lysis panel , auto Unknown Analyte Negati ve Not Available [facility] [address], [place], [address], 11/02/2023 13:48:31 11/02/19 24 11/02/2023 urina lysis panel , auto Unknown Analyte Negati ve Not Available [facility] [address], [place], [address], 11/02/2023 13:48:31 11/02/19 24 11/02/2023 urina lysis panel , auto Unknown Analyte Negati ve Not Available [facility] [address], [place], [address], 11/02/2023 13:48:31 11/02/19 24 11/02/2023 urina lysis panel , auto Unknown Analyte Negati ve Not Available [facility] [address], [place], [address], 11/02/2023 13:48:31 11/02/19 24 11/02/2023 urina lysis panel , auto Unknown Analyte Negati ve Not Available [facility] [address], [place], [address], 11/02/2023 13:48:31 11/02/19 24 11/02/2023 urina lysis panel , auto Unknown Analyte Negati ve Not Available [facility] [address], [place], [address], 11/02/2023 13:48:31 11/02/19 24 11/02/2023 urina lysis panel , auto Unknown Analyte Normal Not Available [facility] [address], [place], [address], 11/02/2023 13:48:31 11/02/19 24 11/02/2023 urina lysis panel , auto Unknown Analyte Normal Not Available [facility] [address], [place], [address], 11/02/2023 13:48:31 11/02/19 24 11/02/2023 urina lysis panel , auto Unknown Analyte Negati ve Not Available [facility] [address], [place], [address], 11/02/2023 13:48:31 11/02/19 24 11/02/2023 urina lysis panel , auto Unknown Analyte Negati ve Not Available [facility] [address], [place], [address], 11/02/2023 13:48:31 11/02/19 24 11/02/2023 urina lysis panel , auto Unknown Analyte Normal Not Available [facility] [address], [place], [address], 11/02/2023 13:48:31 11/02/19 24 11/02/2023 urina lysis panel , auto Unknown Analyte Normal 1 mg/dl Not Available [facility] [address], [place], [address], 11/02/2023 13:48:31 11/02/19 24 11/02/2023 urina lysis panel , auto Unknown Analyte Negati ve Not Available [facility] [address], [place], [address], 11/02/2023 13:48:31 11/02/19 24 11/02/2023 urina lysis panel , auto Unknown Analyte Negati ve Not Available [facility] [address], [place], [address], 11/02/2023 13:48:31 11/02/19 24 11/02/2023 urina lysis panel , auto Unknown Analyte Negati ve Not Available [facility] [address], [place], [address], 11/02/2023 13:48:31 11/02/19 24 11/02/2023 urina lysis panel , auto Unknown Analyte Negati ve Not Available [facility] [address], [place], [address], 11/02/2023 13:48:31 11/22/1911/22/2024 urina lysis panel , auto Unknown Analyte Clean Catch Not Available [facility] [address], [place], [address], 11/22/2024 12:46:33 11/22/1911/22/2024 urina lysis panel , auto Unknown Analyte Yellow Not Available [facility] [address], [place], [address], 11/22/2024 12:46:33 11/22/19 25 11/22/2024 urina lysis panel , auto Unknown Analyte Clear Not Available Replaced by [facility] [address], [place], [address], 11/22/2024 12:46:33 11/22/19 25 11/22/2024 urina lysis panel , auto Unknown Analyte 1.020 Not Available [facility] [address], [place], [address], 11/22/2024 12:46:33 11/22/19 25 11/22/2024 urina lysis panel , auto Unknown Analyte 1.003- 1.035 Not Available [facility] [address], [place], [address], 11/22/2024 12:46:33 11/22/19 25 11/22/2024 urina lysis panel , auto Unknown Analyte 5.0 Not Available [facility] [address], [place], [address], 11/22/2024 12:46:33 11/22/19 25 11/22/2024 urina lysis panel , auto Unknown Analyte 5.0-8. 0 Not Available [facility] [address], [place], [address], 11/22/2024 12:46:33 11/22/19 25 11/22/2024 urina lysis panel , auto Unknown Analyte Negati ve Not Available [facility] [address], [place], [address], 11/22/2024 12:46:33 11/22/19 25 11/22/2024 urina lysis panel , auto Unknown Analyte Negati ve Not Available [facility] [address], [place], [address], 11/22/2024 12:46:33 11/22/19 25 11/22/2024 urina lysis panel , auto Unknown Analyte Negati ve Not Available [facility] [address], [place], [address], 11/22/2024 12:46:33 11/22/19 25 11/22/2024 urina lysis panel , auto Unknown Analyte Negati ve Not Available [facility] [address], [place], [address], 11/22/2024 12:46:33 11/22/19 25 11/22/2024 urina lysis panel , auto Unknown Analyte Negati ve Not Available [facility] [address], [place], [address], 11/22/2024 12:46:33 11/22/19 25 11/22/2024 urina lysis panel , auto Unknown Analyte Negati ve Not Available [facility] [address], [place], [address], 11/22/2024 12:46:33 11/22/19 25 11/22/2024 urina lysis panel , auto Unknown Analyte Normal Not Available [facility] [address], [place], [address], 11/22/2024 12:46:33 11/22/19 25 11/22/2024 urina lysis panel , auto Unknown Analyte Normal Not Available [facility] [address], [place], [address], 11/22/2024 12:46:33 11/22/19 25 11/22/2024 urina lysis panel , auto Unknown Analyte Negati ve Not Available [facility] [address], [place], [address], 11/22/2024 12:46:33 11/22/19 25 11/22/2024 urina lysis panel , auto Unknown Analyte Negati ve Not Available [facility] [address], [place], [address], 11/22/2024 12:46:33 11/22/19 25 11/22/2024 urina lysis panel , auto Unknown Analyte Normal Not Available [facility] [address], [place], [address], 11/22/2024 12:46:33 11/22/19 25 11/22/2024 urina lysis panel , auto Unknown Analyte Normal 1 mg/dl Not Available [facility] [address], [place], [address], 11/22/2024 12:46:33 11/22/19 25 11/22/2024 urina lysis panel , auto Unknown Analyte Negati ve Not Available [facility] [address], [place], [address], 11/22/2024 12:46:33 11/22/19 25 11/22/2024 urina lysis panel , auto Unknown Analyte Negati ve Not Available [facility] [address] [facility] [address], [place], [address], 11/22/2024 12:46:33 11/22/19 25 11/22/2024 urina lysis panel , auto Unknown Analyte Negati ve Not Available [facility] [address] [facility] [address], [place], [address], 11/22/2024 12:46:33 11/22/19 25 11/22/2024 urina lysis panel , auto Unknown Analyte Negati ve Not Available [facility] [address] [place] [address] [address], [place], [address], 11/22/2024 12:46:33 03/03/20 23 03/03/2023 CT, abdom en + pelvi s, w/ contr ast No observ ation record ed. [email or web address] Not Available 2022 11:52:11 Result Notes None recorded. Problems No Known Problems Procedures Surgical History Date Name Laterality Status Provider Name and Address Organization Details Recorded Time tonsillectomy completed [facility] 03/26/2023 15:34:22 hernia repair completed [facility] 03/26/2023 15:34:27 fistulectomy of rectum completed [facility] 03/26/2023 15:34:49 Imaging Results None recorded. Procedure Notes None recorded. Medical Equipment None Reported. Allergies No known drug allergies Medications Name Sig Start Date Stop Date Status Note LastModified by Organization Details LastModified Time metformin 500 mg tablet Take 1 tablet twice a day by oral route. active Not Available Not Available No t Available oxybutynin chloride ER 10 mg tablet,exten ded release 24 hr TAKE 1 TABLET DAILY 2024 active Not Available Not Available Not Avai lable lisinopril 20 mg tablet Take 1 tablet every day by oral route. 11/22 completed Not Available Not Available Not Available meloxicam 7.5 mg tablet Take 1 tablet every day by oral route. active Not Available Not Available No t Available hydrochlorot hiazide 12.5 mg capsule Take 1 capsule every day by oral route. active Not Available Not Available No t Available omeprazole 20 mg capsule,ashley yed release Take 1 capsule every day by oral route. active Not Available Not Available No t Available sertraline 50 mg tablet Take 1 tablet every day by oral route. active Not Available Not Available No t Available rosuvastatin 10 mg tablet Take 1 tablet every day by oral route. active Not Available Not Available No t Available Low Dose Aspirin active Not Available Not Available Not Available Vitals Date Recorded Body height Body mass index (BMI) Body weight Provider Name and Address Organization Details Last Updated DateTime 11/02/2023 167.64 cm 29.1 kg/m2 56227.63 g Eva Ochoa [facility] 11/02/2023 13:57:15 Date Recorded Body height Body mass index (BMI) Body weight Provider Name and Address Organization Details Last Updated DateTime 11/22/2024 167.64 cm 30.7 kg/m2 65495.55 g Jerri Youngblood [facility] 11/22/2024 12:47:00 Date Recorded Body height Body mass index (BMI) Body weight Provider Name and Address Organization Details Last Updated DateTime 03/26/2023 167.64 cm 29.1 kg/m2 03859.63 g Jerri Ford [facility] 03/26/2023 15:32:56 Date Recorded Body height Body mass index (BMI) Body weight Provider Name and Address Organization Details Last Updated DateTime 05/17/2023 167.64 cm 29.1 kg/m2 36838.63 g Angelika Hancock [facility] 05/17/2023 13:56:36 Social History Question Answer Notes LastModified by Organizat ion Details LastModified Time Tobacco Smoking Status Former Smoker quit in 1997 Jerri Youngblood [facility] 03/26/2023 15:34:13 What Is Your Relationship Status? [email or web address] Information not available 03/26/2023 Sex: Unknown Functional Status None recorded. Mental Status None recorded. Family History Relationship Description Onset Age of this Age Resolved Age Notes LastModified by Organization Details LastModified Time Mother Family history of malignant neoplasm [email or web address] Not available 2022 15:33:59 Medical History Condition Response Anxiety Disorder Y Hypertension Y Asthma Y High Cholesterol Y Past Encounters Encounter ID Performer Location Encounter Start Date Encounter Closed Date Diagnosis/Indication Diagnosis SNOMED-CT Code Diagnosis ICD10 Code Diagnosis Note [id number] MD ANUSHA HERRERA [facility] [address] [address] 03/26/2023 14:32:15 04/21/2023 04:25:56 Mass of urinary bladder 148448013 N32.89 We will arrange for flexible local cystoscopy [id number] AYDEN KNIGHT MD SURGERY SCHEDULE [address] [place] [address] 04/14/2023 07:15:11 04/14/2023 07:15:45 [id number] AYDEN KNIGHT MD [facility] [address] [address] 05/17/2023 12:49:02 05/17/2023 14:21:23 Increased frequency of urination 629627826 R35.0 Follow-up 6 months Microscopic hematuria 19 [id number] R31.29 [id number] MD ANUSHA HERRERA [facility] [address] [address] 11/02/2023 13:15:25 11/02/2023 14:28:10 Increased frequency of urination 924241504 R35.0 Continue oxybutynin chloride extended release 10 mg daily and follow-up 1 year [id number] MD ANUSHA [facility]ERRERA [facility] [address] [address] 11/22/2024 12:37:04 11/22/2024 13:24:13 Increased frequency of urination 400325008 R35.0 Continue oxybutynin chloride extended release 10 mg daily and follow-up 1 year Health Concerns Section Related Observation LastModified by Organization Detai ls LastModified Time None Recorded Concern Status LastModified by Organization Details LastModified Time None Recorded Advance Directives Directive None Recorded Payers Insurance Date Sequence Insurance Name Policy Number Policy Porras Covered Member ID Porras Member ID Guarantor Name 11/19/2024 1 [employer] (MEDICARE REPLACEMENT/ ADVANTAGE - PPO) [id number] Felice Castaneda [id number] Felice Castaneda Notes Date Note Type Note Provider Name and Address Organization Details Recorded Time 03/26/2023 text/html Patient is here for initial visit with recent CT scan March 03 for diverticulitis. This also showed an indentation on the bladder probable prostate. He does have nocturia 1-2 times per night. He has slow urination. We discussed flexible local cystoscopy for further evaluation to rule out significant pathology. [facility]YDEN KNIGHT [facility] [place], [phone], [facility] 04/20/2023 00:05:13 05/17/2023 text/html Patient is here in follow-up of recent cystoscopy for urinary frequency as well as microscopic hematuria and base of bladder bulge on CT scan. He was found to have some intravesical extension of the prostate but no significant obstruction. I placed him on oxybutynin chloride extended release 10 mg and his symptoms are markedly improved. He is now sleeping through the night and is quite pleased. We will continue therapy. He has had no side effects AYDEN KNIGHT [facility] [place], [phone], [facility] 05/18/2023 11:11:18 11/02/2023 text/html Patient is here 6-month follow-up with urinary frequency and urgency. This is all completely controlled after starting him on oxybutynin chloride extended release 10 mg. He had cystoscopy back earlier last year which was unremarkable other than some prostate enlargement without obstruction. His urine specimen today is unremarkable. He typically sleeps through the night. He remains very satisfied. We will move him to yearly follow-up. He sees his PCP on a regular basis and is anticipating a PSA in the near future [facility]YDEN KNIGHT [facility] [place], [phone], [facility] 11/02/2023 14:28:58 11/22/2024 text/html Patient is here yearly follow-up regarding chronic urgency and frequency. He has been on oxybutynin chloride extended release 10 mg and continues to do well. Has had no urinary infections. He is PSA and laboratories checked by his PCP and [facility]. We will continue with yearly follow-up and current medications. His urine today was unremarkable. AYDEN KNIGHT MD [address] [place] [address], [phone], [facility] 11/22/2024 13:23:02
== END ==
LOC: SL 08:35
PROVIDERS: PCP Nurse Practitioner Family; Visit Provider Specialist
DX: G47.34 Idiopathic sleep related nonobstructive alveolar hypoventilation (principal); G47.33 Obstructive sleep apnea (adult) (pediatric)
CPT/HCPCS: 94762

== ENCOUNTER 2025-05-14 14:50 | Outpatient (CLI) | payer MEDICARE, SELFPAY ==
[2025-05-14 17:09] LABS: Coronavirus 19, PCR Not Detected (NotDetected); Influenza A, PCR Not Detected (NotDetected); Influenza B, PCR Not Detected (NotDetected)
--- OUTSIDE RECORDS SUMMARY | 2025-05-15 12:06 | XMS_ITS | Clinical Summary ---
Author Organization [facility] Address [address] [place] [id number] Care Team Providers Care First Helper Name Role Phone Kevin Hancock MD Primary Care Provider Allergies No known active allergies Medications rosuvastatin (CRESTOR) 20 MG tablet Take 20 mg by mouth Daily. Active lisinopril (PRINIVIL,ZESTRI L) 20 MG tablet Take 20 mg by mouth Daily. Active sertraline (ZOLOFT) 50 MG tablet Take 50 mg by mouth Daily. Active omeprazole (priLOSEC) 20 MG capsule Take 20 mg by mouth Daily. Active Fluticasone Furoate-Vilanter ol (BREO ELLIPTA) 100-25 MCG/INH aerosol powder Inhale Daily. Active aspirin 81 MG chewable tablet Chew 81 mg Daily. Active Active Problems Problem Noted Date Diagnosed Date HNP (herniated nucleus pulposus), lumbar 018 Overview (05/23/2018): Added automatically from request for surgery [id number] Family History Medical History Relation Name Comments Cancer Father Cancer Mother Relation Name Status Comments Father Mother Social History Tobacco Use Types Packs/Day Years Used Date Smoking Tobacco: Former Cigarettes Q uit: 05/20/1999 Smokeless Tobacco: Never Alcohol Use Standard Drinks/Week Comments Yes 0 (1 standard drink = 0.6 oz pur e alcohol) 5 drinks a week Abuse Screen Answer Date Recorded Unsafe at Home or Work/School Not on file Feels Threatened by Someone? Not on file 06/2023 Does Anyone Keep You from Co ntacting Others or Doint Things Outside the Home? Not on file 08/02/2023 Physical Sign of Abuse Present Not on file 1 Housing Stability Answer Date Recorded Current Living Arrangements Not on file 06/2023 Potentially Unsafe Housing Conditions Not on antony e 08/02/2023 Family and Community Support Answer Siddhartha e Recorded Help with Day-to-Day Activities Not on file 08/02/2023 Lonely or Isolated Not on file 08/02/2023 Employment Answer Date Recorded Do you want help finding or keeping work or a susanna b? Not on file 08/02/2023 Disabilities Answer Date Recorded Concentrating, Remembering, or Making Decisions Difficulty Not on file 08/02/2023 Doing Errands Independently Difficulty Not on fi le 08/02/2023 Education Answer Date Recorded Help with school or training? Not on file Preferred Language Not on file 08/02/2023 Sex and Gender Information Value Date Recorded Sex Assigned at Not on file Legal Sex Male 1:16 PM EDT Gender Identity Not on file Sexual Orientation Not on file Last Filed Vital Signs Vital Sign Reading Time Taken Comments Blood Pressure 128/88 06/28/2018 11:22 AM EDT Pulse 61 06/06/2018 5:27 PM EDT Temperature 36.3 C (97.4 F) 08/09/2018 3:19 PM EDT Respiratory Rate 18 08/09/2018 3:19 PM EDT Oxygen Saturation 97% 06/06/2018 5:27 PM EDT Inhaled Oxygen Concentration - - Weight 85 kg (187 lb 6.4 oz) 08/09/2018 3:19 PM EDT Height 167.6 cm (5' 5.98 ) 08/09/2018 3:19 PM ED T Body Mass Index 30.27 08/09/2018 3:19 PM EDT Plan of Treatment Health Maintenance Due Date Last Done Comments TDAP/TD VACCINES (1 - Tdap) 1975 COLOGUARD 2001 COLON CANCER SCREENING 5 YEAR SIGMOIDOSCOPY 2001 COLONOSCOPY [address] SCREENING [address] COLONOGRAPHY 2001 FECAL OCCULT BLOOD TEST 2001 FIT Testing (1 year) 2001 Pneumococcal Vaccine 50+ (1 of 1 - PCV) 2006 ZOSTER VACCINE (1 of 2) 2006 ANNUAL PHYSICAL 05/19/2018 HEPATITIS C SCREENING 05/19/2018 AAA SCREEN ONCE 2021 COVID-19 Vaccine ( season) 2024 INFLUENZA VACCINE 07/25/2025 Insurance [facility] PPO Advance Directives Documents on File Type Date Recorded 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
== END 2025-05-14 23:59 | disposition home or self-care (01) ==
LOC: LAB.DROPOF 05-15 12:04
PROVIDERS: PCP Nurse Practitioner Family; Visit Provider Nurse Practitioner Family
DX: R09.89 Other specified symptoms and signs involving the circulatory and respiratory systems (principal)
CPT/HCPCS: 87631

== ENCOUNTER 2025-07-23 09:00 | Outpatient (CLI) | payer MEDICARE, SELFPAY ==
[2025-07-23 14:04] LABS: Anion Gap 15.8 mEq/L (5-15); Blood Urea Nitrogen 20 mg/dl (9-20); Calcium 9.3 mg/dl (8.4-10.2); Carbon Dioxide 28 mmol/L (22.0-30.0); Chloride 97 mmol/L (98-107); Cholesterol 148 mg/dl (140-200); Creatinine,Serum 0.90 mg/dl (0.66-1.25); Estimated Glomerular Filt Rate 84 ml/min (>60); GFR (African American) 101 ML/MIN (>60); Glucose 108 mg/dl (74-100); HDL Cholesterol 45 mg/dl (40-60); Potassium 3.8 mmoL/L (3.5-5.1); Sodium 137 mmol/L (136-145); Triglycerides 181 mg/dl (30-150)
[2025-07-23 14:22] LABS: Free T4 (Free Thyroxine) 0.94 ng/dl (0.78-2.19)
[2025-07-23 14:35] LABS: Thyroid Stimulating Hormone 1.02 uIU/mL (0.465-4.68)
[2025-07-23 19:04] LABS: Hemoglobin A1C 6.1 % (4.0-6.0)
--- OUTSIDE RECORDS SUMMARY | 2025-07-24 10:35 | XMS_ITS | Clinical Summary ---
Author Organization [facility] Address [address] [place] [id number] Care Team Providers Care Collar Turner Name Role Phone Kevin Hancock MD Primary Care Provider [phone] Allergies No known active allergies Medications rosuvastatin [...] (05/23/2018): Added automatically from request for surgery [id number] Family History Medical History Relation Name Comments [...] C SCREENING 05/19/2018 AAA SCREEN ONCE 2021 INFLUENZA VACCINE 05/25/2025 COVID-19 Vaccine ( season) 2025 Insurance [facility] PPO Advance Directives Documents on File Type Date Recorded 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
== END 2025-07-23 23:59 ==
LOC: LAB.DROPOF 07-24 10:31
PROVIDERS: PCP Nurse Practitioner Family; Visit Provider Nurse Practitioner Family
DX: N52.9 Male erectile dysfunction, unspecified (principal); E11.9 Type 2 diabetes mellitus without complications; Z12.5 Encounter for screening for malignant neoplasm of prostate; K21.9 Gastro-esophageal reflux disease without esophagitis; F41.9 Anxiety disorder, unspecified; F32.A Depression, unspecified; E78.5 Hyperlipidemia, unspecified; I10 Essential (primary) hypertension; G47.33 Obstructive sleep apnea (adult) (pediatric)
CPT/HCPCS: 80048; 80061; 82043; 82570; 83036; 84156; 84439; 84443; G0103